=== PATIENT | female | born 1995 | race African-American/Black ===

== ENCOUNTER 2018-04-22 14:06 | Emergency (ER) | payer OTHER ==
[~2018-04-22] VITALS: Ht 185.4 cm; Wt 77.1 kg
[2018-04-22 14:24] VITALS: BP 134/73
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
[2018-04-22] MEDS ORDERED: CYCL10TA2 PO (15:05)
== END 2018-04-22 15:10 | disposition home or self-care (01) ==
LOC: ER 14:06
DX: S13.4XXA Sprain of ligaments of cervical spine, initial encounter (principal); R51 Headache; V47.5XXA Car driver injured in collision with fixed or stationary object in traffic accident, initial encounter; Y93.89 Activity, other specified; Y92.410 Unspecified street and highway as the place of occurrence of the external cause; Y99.8 Other external cause status
CPT/HCPCS: 99283